=== PATIENT | male | born 1950 | race Caucasian/White ===

== ENCOUNTER 2024-11-15 06:31 | Day surgery (SDC) | payer MEDICARE ==
[~2024-11-15] VITALS: Ht 172.7 cm; Wt 80.1 kg
[~2024-11-15 06:31] MED LIST: ATOR1TAB21 PO; LISI20TA35 PO; PHENYLEPHRINE 10% OPHTH SOL 5ML OD PRN
[2024-11-15] MEDS: LIDOCAINE 3.5 % 1ML OPHTH TOPICAL GEL OU ONE (07:00)
[2024-11-15] MEDS: OFLOXACIN 0.3 % (OCUFLOX) OPTH SOL 5ML OD ONE (07:00)
[2024-11-15] MEDS: PHENYLEPHRINE 2.5% OPHTH SOL 2ML OD SCH (07:10)
[2024-11-15] MEDS: CYCLOPENTOLATE 1% OPHTH SOLN 2ML BTL OD SCH (07:10)
[2024-11-15] MEDS: TROPICAMIDE 1% OPHTH SOLN 15ML OD SCH (07:10)
[2024-11-15] MEDS ORDERED: fentaNYL 100 MCG/2 ML INJECTION As Ordered ONE (07:15)
[2024-11-15] MEDS ORDERED: MIDAZOLAM INJ 2MG/2ML VIAL As Ordered ONE (07:15)
[2024-11-15] MEDS: BSS IRRIG/VANCO(10MG)/TOBRA(5MG)/EPINEPH(1:1000-0.5CC)500ML BAG-ORONLY As Ordered ONE (08:33)
[2024-11-15] MEDS: LIDOCAINE 1% SDV 5ML VIAL As Ordered ONE (08:33)
[2024-11-15] MEDS: CEFUROXIME 1MG/0.1ML INTRACAMERAL INJ As Ordered ONE (08:35)
[2024-11-15 08:47] VITALS: BP 133/74; TEMP 97.7; O2SAT 95
== END 2024-11-15 08:59 | disposition home or self-care (01) ==
LOC: M SDC 06:31
PROVIDERS: ATTEND Ophthalmology
DX: H25.11 Age-related nuclear cataract, right eye (principal); I10 Essential (primary) hypertension; E78.00 Pure hypercholesterolemia, unspecified; Z79.899 Other long term (current) drug therapy
CPT/HCPCS: 66984; J0697; J2250; J3010; V2632

== ENCOUNTER 2024-11-22 07:20 | Day surgery (SDC) | payer MEDICARE ==
[~2024-11-22] VITALS: Ht 172.7 cm; Wt 78.1 kg
[~2024-11-22 07:20] MED LIST changes: -PHENYLEPHRINE 10% OPHTH SOL 5ML OD PRN; +PHENYLEPHRINE 10% OPHTH SOL 5ML OS PRN
[2024-11-22] MEDS ORDERED: fentaNYL 100 MCG/2 ML INJECTION As Ordered ONE (07:21)
[2024-11-22] MEDS ORDERED: MIDAZOLAM INJ 2MG/2ML VIAL As Ordered ONE (07:21)
[2024-11-22] MEDS: PHENYLEPHRINE 2.5% OPHTH SOL 2ML OS SCH (07:55)
[2024-11-22] MEDS: TROPICAMIDE 1% OPHTH SOLN 15ML OS SCH (07:55)
[2024-11-22] MEDS: LIDOCAINE 3.5 % 1ML OPHTH TOPICAL GEL OU ONE (07:55)
[2024-11-22] MEDS: CYCLOPENTOLATE 1% OPHTH SOLN 2ML BTL OS SCH (07:55)
[2024-11-22] MEDS: OFLOXACIN 0.3 % (OCUFLOX) OPTH SOL 5ML OS ONE (07:55)
[2024-11-22] MEDS: LIDOCAINE 1% SDV 5ML VIAL As Ordered ONE (09:32)
[2024-11-22] MEDS: CEFUROXIME 1MG/0.1ML INTRACAMERAL INJ As Ordered ONE (09:32)
[2024-11-22] MEDS: BSS IRRIG/VANCO(10MG)/TOBRA(5MG)/EPINEPH(1:1000-0.5CC)500ML BAG-ORONLY As Ordered ONE (09:32)
[2024-11-22] MEDS: PROVISC 10 MG/ML 0.85ML SYRINGE As Ordered ONE (09:33)
[2024-11-22 09:46] VITALS: BP 155/82; TEMP 97.2; O2SAT 96
== END 2024-11-22 09:59 | disposition home or self-care (01) ==
LOC: M SDC 07:20
PROVIDERS: ATTEND Ophthalmology
DX: H25.12 Age-related nuclear cataract, left eye (principal); I10 Essential (primary) hypertension; E78.00 Pure hypercholesterolemia, unspecified; Z79.899 Other long term (current) drug therapy; Z90.89 Acquired absence of other organs; Z85.038 Personal history of other malignant neoplasm of large intestine; Z85.46 Personal history of malignant neoplasm of prostate
CPT/HCPCS: 66984; A4649; J0697; J2250; J3010; V2632